=== PATIENT | female | born 1930 | race Caucasian/White ===

== ENCOUNTER 2021-02-16 14:36 | Observation (INO) | payer MEDICARE ==
[~2021-02-16] VITALS: Ht 162.6 cm; Wt 72.2 kg
[~2021-02-16 14:36] MED LIST: ALDACTONE50 MG PO; ALENDRONATE SOD70 MG PO; BREWER'S YEAST500 MG PO; CALCIUM600 MG PO; CENTRUM SILVER1 EACH PO; CRANBERRY425 MG PO; CYCLOBENZAPRINE10 MG PO; FISH OIL 1,0001 EAC1 PO; FLAX OIL1000 MG PO; GARLIC OIL1000 MG PO; GLUCOPHAGE500 MG PO; KEFLEX250 MG PO; L-LYSINE1000 MG PO; LEVOXYL25 MCG PO; MIRALAX119 GM PO; MS CONTIN15 MG PO; MULTIPLE VITAM1 EAC1 PO; NEURONTIN100 MG PO; NORCO 5-325 TA1 EACH PO; OSTEO BI-FLEX1 EAC2 PO; SIMVASTATIN10 MG PO; SPIRONOLACTONE25 MG PO; VITAMIN B-1001 EACH PO; VITAMIN B-122000 MCG PO; VITAMIN C1000 MG PO; ZOCOR40 MG PO; [UNRECOGNIZED DRUG - OTHER]; [UNRECOGNIZED DRUG - OTHER] MC
[2021-02-16] MEDS ORDERED: TRIAMCINOLONE A15 G2 TOP (14:50)
[2021-02-16] MEDS ORDERED: AMOX TR-K CLV1 EAC1 PO (14:50)
[2021-02-16] MEDS ORDERED: TRIAMTERENE-HC1 EAC1 PO (14:50)
[2021-02-16] MEDS ORDERED: TRAMADOL HCL50 MG PO (14:51)
--- NOTE | 2021-02-16 19:32 | NUR ---
PT ARRIVED FROM ER. REPORT GIVEN TO STEVEN CASTAÑEDA RN. PT REPORTS SHE IS HOPING FOR A X-RAY OF HER LEFT WRIST. PT REPORTS WRIST IS PAINFUL. PT UNABLE TO RATE PAIN ON A SCALE OF 0-10. FLACC SCORE OF 5/10. REPORT GIVEN TO LISA PITTS RN. PT TRANSFERS SELF TO MED/SURG BED WITH 1 PERSON ASSIST. VITAL SIGNS STABLE. CALL LIGHT WITHIN REACH. BED RAILSUP.
--- NOTE | 2021-02-16 19:55 | NUR ---
HISTORY ASSESSMENT DONE. pt REPORTED SHE WOULD LIKE HER SON LAYNE HERNANDEZ TO MAKE DECISIONS FOR HER IF SHE IS NOT ABLE TO. pt IS REPORTING PAIN IN HER KNEES. ASSISTED TO REPOSITION. CALL LIGHT WITHIN REACH.
--- NOTE | 2021-02-16 20:00 | NUR ---
PATIENT CALLED FOR WARM BLANKET. PROVIDED.
--- NOTE | 2021-02-16 21:51 | NUR ---
TOOK pt TO CT WITH FACING MACHINE OPERATOR. IMAGINING DONE. pt 2PA BACK TO BED AND MOVED BACK TO ROOM. SON IN ROOM WAITING FOR pt. QUESTIONS ANSWERED. SON WOULD LIKE DAUGHTER DAPHNE TO BE PRESENT WHEN MD ROUNDS. CALL LIGHT WITHIN REACH.
--- NOTE | 2021-02-16 22:30 | NUR ---
ENSURE STRAWBERRY PROVIDED.
--- NOTE | 2021-02-16 22:36 | NUR ---
PT CONTINUES TO RATE PAIN 12/10 IN LEFT HAND DESPITE ICE, ELEVATION, AND PAIN MEDS. DOCTOR ZULEYMA NOTIFIED. NEW ORDERS RECEIVED. PRN FOR PAIN ADMINISTERED ORDERED. SON AT BEDSIDE. ENSURE PROVIDED.
--- NOTE | 2021-02-16 23:43 | NUR ---
DR AMOR CALLED FLOOR TO UPDATE ON PTS CONDITION. PT AWAKENED FOR SCHEDULED MED ADMINISTRATION. REPORTS RELIEF FROM LAST PRN FOR PAIN ADMIN. DENIES NEEDS. BED ALARM FOR SAFETY. CALL LIGHT IN REACH.
--- NOTE | 2021-02-17 02:44 | NUR ---
PT UP TO BSC WITH 2PA AND FWW TO VOID. PT INCONTINENT OF URINE ON THE FLOOR. GAIT WEAK. NEW GOWN AND LINENS PROVIDED. KRYSTINA CARE DONE BY STAFF. BACK TO BED, DRE WELL. LUE ELEVATED ON PILLOW. PT DENIES PAIN AT THIS TIME. BED ALARM FOR SAFETY. CALL LIGHT IN REACH.
--- NOTE | 2021-02-17 02:44 | NUR ---
V/S AND I&O DONE. 2 PA TO BEDSIDE COMMODE. PATIENT IS INCONTINENT AT TIMES. WIPED AND PLACED NEW PULL UPS. CHANGED GOWN AND CHUX.
[2021-02-17] MEDS ORDERED: LEVOTHYROXINE88 MCG PO (02:52)
--- NOTE | 2021-02-17 06:49 | NUR ---
VS AND I&O COMPLETE. PT INCONTINENT OF URINE. UP TO BSC WITH 2PA AND FWW TO VOID. KRYSTINA CARE DONE BY STAFF. CLEAN BRIEF PROVIDED. PT BACK TO BED, DRE WELL. NO C/O PAIN AT THIS TIME. SCHEDULED MEDS ADMINISTERED. PT LAUGHING AND JOKING. DENIES FURTHER NEEDS AT THIS TIME. FRESH WATER PROVIDED.
--- NOTE | 2021-02-17 07:44 | NUR ---
pt resting eyes closed at time of shift exchange. left undisturbed
--- NOTE | 2021-02-17 08:51 | NUR ---
PT ALERT AND COOPERATIVE SITTING UPRIGHT IN BED WITH MORNING MEAL. DENIES DISCOMFORTS OR NEEDS AT THIS TIME.
--- NOTE | 2021-02-17 08:55 | NUR ---
INTO ROOM TO COMPLETE PATIENT ASSESSMENT. PT AND MIKE RN IN THE ROOM PATIENT IS TO ABULATE IN [place]. WILL RETURN TO ASSESS PATIENT AT LATER TIME.
--- NOTE | 2021-02-17 09:25 | NUR ---
SON IS PRESENT IN THE ROOM PT WORKING WITH P/T AT THIS TIME
--- NOTE | 2021-02-17 10:51 | NUR ---
PATIENT SITTING UP IN BED TALKING WITH GRAND DAUGHTER WHO IS AT BEDSIDE. PATIENT SAID WRIST HURT A LITTLE AND ASKED FOR A HEAT PACK. MADE A HEAT PACK AND DOUBLE WRAPPED IT IN A TOWEL AND PLACED UNDER WRIST, RN NOTIFIED. CALL LIGHT IN REACH. NO FURTHER NEEDS AT THIS TIME.
--- NOTE | 2021-02-17 11:31 | NUR ---
O/T IN TO WORK WITH THIS PT. BOTH SON AND GRANDAUGHTER HAVE ALTERNATED VISITING THIS SHIFT. PT REPORTED HER LEFT WRIST STARTING TO HURT, TYLENOL ADMINISTERED SHE AGREES THIS WAS HELPFUL. WARM PACK APPLIED WELL PER HER REQUEST.
[2021-02-17] MEDS ORDERED: SIMVASTATIN40 MG PO (12:34)
[2021-02-17] MEDS ORDERED: OMEPRAZOLE40 MG PO (12:36)
[2021-02-17] MEDS ORDERED: METFORMIN HCL500 M1 PO (12:36)
[2021-02-17] MEDS ORDERED: SPIRONOLACTONE50 MG PO (12:37)
--- NOTE | 2021-02-17 13:17 | NUR ---
PTS. SON ANABELL WAS WANTING AN UPDATE, AFTER TALKING DR. AMOR I UPDATED HIM THAT DR AMOR WOULD CALL HIM LATER TODAY. ANABELL IS GOING TO BE HEADED BACK TO THE [facility].
--- NOTE | 2021-02-17 13:40 | NUR ---
PT SITTING UPRIGHT IN BED VISITING WITH GRANDDAUGHTER. SHE DENIES NEEDS OF OR DISCOMFORTS
--- NOTE | 2021-02-17 14:18 | NUR ---
PATIENT SITTING UP IN BED TALKING WITH VISITOR WHO IS AT BEDSIDE. VITALS AND I&O'S DONE. CALL LIGHT IN REACH. NO FURTHER NEEDS AT THIS TIME.
--- NOTE | 2021-02-17 16:28 | NUR ---
MED REC COMPLETE
--- NOTE | 2021-02-17 16:40 | NUR ---
SPOKE WITH PATEINTS SON JEFFERSON BY PHONE IN THE ROOM. PATIENT WAS PRESENT AND IS AWARE OF CALL AND SITUATION. DISCUSSED PATIENT OBSERVATION STATUS. DISCUSSED MEDICARE ADVANTAGE COVERAGE AND POSSIBILITIES FOR DISCHARGE. JEFFERSON STATES HE HAS SPOKEN WITH [facility] HERE IN [place] AND THEY HAVE THE POSSIBILITY OF HER GOING THERE FOR 3-4 WEEKS IF NEEDED. HE STATES PATIENT HAS FUNDS FOR SOMETHING LIKE THIS. HE UNDERSTANDS INSURANCE DOES NOT PAY FOR ASSISTED LIVING COVERAGE. THEY ALSO ARE LOOKING AT A FACILITY IN THE [facility] WHERE THEY ARE FROM. HE IS HEADING BACK THERE TONIGHT. HIS DAUGHTER AND GRANDDAUGHTER ARE STAYING HERE AND WILL HELP WITH WHATEVER IS DECIDED FOR DISCHARGE. HIS CELL PHONE IS [phone]. WE DISCUSSED THAT PATIENT IS STABLE AND COULD BE DISCHARGED MOST LIKELY TOMORROW. ALSO THAT WE WANT TO SUPPORT THEM IN FINDING A SAFE PLACE AND HER WISHES. HE STATES SHE WANTS TO GO HOME. SHE DOES NOT NECESARILY WANT A HALF-WAY. HE IS GOING TO GO VISIT THE PLACE IN THE [facility] IN THE MORNING AND WE AGREED CM WILL TALK WITH HIM TOMORROW. A CALL TO [facility] IN THE MORNING WILL ALSO BE MADE. JANINE CONTINUES TO FOLLOW.
--- NOTE | 2021-02-17 18:06 | EKG ---
[facility] [address] [place] [address] Signed Normal sinus rhythm Possible Anterior infarct , age undetermined Abnormal ECG No previous ECGs available Confirmed by COY AMOR MD ([id number]) on 02/17/2021 6:06:37 PM Electronically Signed By: COY AMOR MD 02/17/[id number] PATIENT NAME: GIUSEPPE HERNANDEZ Electrocardiogram DATE OF : [birth year] PHYSICIAN: COY AMOR MD REPORT #: [id number] REPORT IS CONFIDENTIAL AND NOT TO BE RELEASED WITHOUT AUTHORIZATION
--- NOTE | 2021-02-17 18:11 | NUR ---
PATIENT IN BED WATCHING TV. VITALS AND I&O'S CHARTED. CALL LIGHT IN REACH. NO FURTHER NEEDS AT THIS TIME.
--- NOTE | 2021-02-17 18:11 | NUR ---
PT WORRIED THAT SHE CAN NOT FIND HER PURSE OR CANE, ASSISTED HER TO CALL FAMILY WHO CONFIRM THESE ITEMS ARE AT HOME. PT SATISFIED WITH THIS. RESTING IN BED NOW WATCHING TV. DENIES PAIN IN KNEES OR LEFT WRIST.
--- NOTE | 2021-02-17 19:17 | NUR ---
REPORT RECEIVED FROM DAY SHIFT RN. PT LYING IN BED ALERT AND ORIENTED. DENIES NEEDS AT THIS TIME. WHITE BOARD UPDATED. CALL LIGHT IN REACH.
--- NOTE | 2021-02-17 21:14 | NUR ---
EVENING ASSESSMENT COMPLETE. SCHEDULED MEDS ADMINISTERED PER EMAR. PT DENIES CP OR SOB. REPORTS PAIN IS MUCH IMPROVED IN LEFT WRIST. DENIES PRN FOR PAIN AT THIS TIME. UP TO BSC WITH 1PA TO VOID. ABLE TO DO OWN KRYSTINA CARE. BACK TO BED, DRE WELL. PT DENIES QUESTIONS OR CONCERNS. CALL [facility] IN REACH BED ALARM FOR SAFETY.
--- NOTE | 2021-02-17 22:10 | NUR ---
CALL LIGHT ANSWERED. PT REQUESTING "SOMETHING FOR PAIN". PRN FOR PAIN ADMINISTERED FOR REPORTS OF LEFT WRIST AND BILAT KNEE PAIN. ASSISTED PT TO REPOSITION IN BED. NO FURTHER NEEDS AT THIS TIME. CALL LIGHT IN REACH. BED ALARM FOR SAFETY.
--- NOTE | 2021-02-18 01:11 | NUR ---
PT RESTING IN BED WITH EYES CLOSED, NAD.
--- NOTE | 2021-02-18 03:11 | NUR ---
IN TO ROUND ON PT. PT AWAKE IN BED. REPORTS "I'M JUST SO TENSE TONIGHT, I KEEP HEARING THINGS". EXPLAINED TO PT THAT THERE ARE FREQUENT BED ALARMS SOUNDING. ASSISTED PT TO TURN VOLUME UP ON TV AND REPOSITION IN BED. FRESH WATER PROVIDED.
--- NOTE | 2021-02-18 07:00 | NUR ---
SCHEDULED MEDS ADMINISTERED. VS AND I&O COMPLETE. PT DENIES NEEDS AT THIS TIME.
--- NOTE | 2021-02-18 07:22 | NUR ---
PT RESTING EYES CLOSED AT TIME OF SHIFT EXCHANGE BREATHING EVEN AND UNLABORED, LEFT UNDISTURBED.
--- NOTE | 2021-02-18 08:50 | NUR ---
PT UP TO TOILET THEN TO THE CHAIR FOR MORNING MEAL. SHE DENIES PAIN AT THIS TIME TYLENOL GIVEN PREVENTATIVELY.
--- NOTE | 2021-02-18 09:00 | NUR ---
Spoke with pt and granddaughter. Pt plans on dc today to go home with her granddaughter to her son's home in the [facility]. They are planning on placement to assisted living, family are having difficulty finding placement they would like for pt. Discussed with granddaughter I can assist them if they would like help. She states her dad is working on this and pt will go home with them, granddaughter will stay with her until Betzy can find placement.
--- NOTE | 2021-02-18 09:34 | NUR ---
PT UP AMBULATING IN THE [place] WITH P/T.
--- NOTE | 2021-02-18 10:39 | NUR ---
PT REMAINS UP IN A CHAIR THIS SHIFT, ROSARIO IN VISITING WITH HER AT THIS TIME. NEEDED ITEMS IN REACH, PT DENIES PAIN OR DISCOMFORTS.
--- NOTE | 2021-02-18 10:43 | NUR ---
PATIENT IN CHAIR TALKING WITH VISITOR. VITALS AND I&O'S CHARTED. CALL LIGHT IN REACH. NO FURTHER NEEDS AT THIS TIME.
--- NOTE | 2021-02-18 12:00 | NUR ---
PATIENT ASSISTED IN SHOWER. PATIENT TO AND FROM SHOWER SBA CANE. KRYSTINA CARE, SKIN CARE, AM CARE DONE. IV TAKEN OUT UPON RN REQUEST. PATIENT IN CHAIR. CALL LIGHT IN REACH. NO FURTHER NEEDS AT THIS TIME.
[2021-02-18] MEDS ORDERED: PREDNISONE10 MG PO (12:54)
[2021-02-18] MEDS ORDERED: ELIQUIS5 MG PO (12:57)
[2021-02-18] MEDS ORDERED: ARTHRITIS PAIN100 GM TOP (12:57)
--- NOTE | 2021-02-18 14:47 | NUR ---
Granddaughter in room and getting ready for dc. She was unsure where pt would have her OP therapy in the [facility]. H&P, DC summary, PT/OT notes, face sheet order all placed in an envelope and given to granddaughter.
--- NOTE | 2021-02-18 14:54 | NUR ---
PT ALERT, ORIENTED AND SITTING IN CHAIR DRESSED WAITING FOR DC AND HER RIDE. PT EXPRESSED FRUSTRATION AT WHAT SHE CALLED,"THEY WONT LET ME THINK FOR MY- SELF" FEELINGS. DEBRIEFED FOR A MOMENT, PT THANKED ME. GAVE ENCOURAGEMENT, BLESSING AND G.POST. WILL FOLLOW NEEDED
== END 2021-02-18 14:55 | disposition home or self-care (01) ==
LOC: ED 14:36 → MS 14:37
PROVIDERS: ADMIT Internal Medicine; ATTEND Internal Medicine
DX: M10.9 Gout, unspecified (principal); M17.0 Bilateral primary osteoarthritis of knee; I26.99 Other pulmonary embolism without acute cor pulmonale; E87.1 Hypo-osmolality and hyponatremia; E86.0 Dehydration; R09.02 Hypoxemia; I10 Essential (primary) hypertension; Z20.822 Contact with and (suspected) exposure to COVID-19; E11.9 Type 2 diabetes mellitus without complications; E78.00 Pure hypercholesterolemia, unspecified; E03.9 Hypothyroidism, unspecified; Z88.1 Allergy status to other antibiotic agents; Z87.891 Personal history of nicotine dependence; Z79.899 Other long term (current) drug therapy; Z79.890 Hormone replacement therapy; Z79.84 Long term (current) use of oral hypoglycemic drugs
CPT/HCPCS: 36415; 51701; 71045; 71260; 73110; 80053; 81001; 83605; 83880; 84484; 84550; 85025; 85379; 87040; 93005; 93010; 96374; 97116; 97162; 97165; 97530; 99285-25; C9803; G0378; J1815; J2920; J7121; J7512; Q9967; U0003